=== PATIENT | female | born 1945 | race Caucasian/White ===

== ENCOUNTER → 2018-05-26 | Outpatient (CLI) | payer MEDICARE ==
[~2018-05-26] MED LIST: ARTHROTEC 75 T1 EACH PO; CLOPIDOGREL75 MG PO; CYMBALTA30 MG PO; DOC-Q-LACE100 M1 PO; DOCUSATE SODIU100 M1 PO; FERROUS SULFAT325 MG PO; GLIMEPIRIDE2 MG PO; GLYBURID-METFO1 EAC2 PO; HYDROCHLOROTHIA25 MG; HYDROCODONE-AP1 EACH PO; LEVEMIR100 UNIT/1 SQ; LOMOTIL1 EA PO; NITROGLYCERIN0.4 MG SL; NORCO 5-325 TA1 EACH PO; OXYCODONE-ACET1 EAC1 PO; PANTOPRAZOLE SO40 MG PO; PRAVASTATIN SOD40 MG; ROBAXIN-750750 MG; ULTRAM 50MG50 MG PO; Z.0.ALLEGRA ALLERG18 PO; Z.0.BENTYL20 MG PO; Z.0.CARVEDILOL12.5 M PO; Z.0.CLONAZEPAM1 MG PO; Z.0.GABAPENTIN300 MG PO; Z.0.KLOR-CON 1010 ME PO; Z.0.LASIX40 MG PO; Z.0.LEXAPRO20 MG PO; Z.0.LIPITOR10 MG PO; Z.0.LISINOPRIL10 MG PO; Z.0.LISINOPRIL20 MG PO; Z.0.METOPROLOL SUCC2 PO; Z.0.PLAVIX75 MG PO; Z.0.PREMARIN1.25 MG PO; Z.0.SIMVASTATIN10 MG PO; Z.1.ISOSORBIDE MONO6 PO; Z.1.LEVOTHYROXINE100 PO; ZOFRAN ODT4 MG PO; [UNRECOGNIZED DRUG - CODE] PO; [UNRECOGNIZED DRUG - OTHER] PO; [UNRECOGNIZED DRUG - OTHER] PO; linaclotide PO
--- NOTE | 2018-05-27 16:27 | Diagnostic Imaging Report ---
EXAMINATION: PA and lateral views of the chest. COMPARISON: None CLINICAL HISTORY: Weakness after hospital stay DISCUSSION: Lungs are well-inflated. No focal consolidation, pleural effusion, or pneumothorax. Coronary stents. Otherwise normal cardiomediastinal contour. No acute osseous abnormality. Right upper quadrant surgical clips likely related to prior cholecystectomy. IMPRESSION: No acute cardiopulmonary abnormalities. Signed by: Dr. Jai Chamorro M.D. on 05/27/2018 4:23 PM
== END ==
LOC: RAD 11:20
PROVIDERS: ATTEND Family Medicine
DX: Z02.2 Encounter for examination for admission to residential institution (principal)
CPT/HCPCS: 71046

== ENCOUNTER → 2018-10-28 | Outpatient (CLI) | payer MEDICARE ==
[~2018-10-28] MED LIST changes: +IOPAMIDOL 370 MG/ML 200 ML INFUS..BTL INJ ONE; +SODIUM CHLORIDE 0.9% 500ML 500 ML ONE; +SODIUM CHLORIDE 0.9% 50ML 50 ML ONE
--- NOTE | 2018-10-28 15:42 | Diagnostic Imaging Report ---
EXAM: CT Abdomen WITH contrast INDICATION: Right-sided abdominal and back pain, elevated LFTs. COMPARISON: Report from CT abdomen/pelvis dated 01/21/2015, although the images are not available for review at the time of this dictation. TECHNIQUE: Abdomen was scanned utilizing a multidetector helical scanner from the lung base to the iliac crest after administration of IV contrast. Coronal and sagittal reformations were obtained. Routine protocol was performed. Scan was performed when during portal venous phase. IV CONTRAST: 100 cc of Isovue 370. ORAL CONTRAST: Water RADIATION DOSE: Total DLP: 385 mGy*cm Estimated effective dose: (DLP x 0.015 x size factor) mSv Dose modulation, iterative reconstruction, and/or weight based adjustment of the mA/kV was utilized to reduce the radiation dose to as low as reasonably achievable. COMPLICATIONS: None FINDINGS: LINES and TUBES: None. LOWER THORAX: Coronary atherosclerosis. HEPATOBILIARY: Diffuse mild fatty liver. Calcified granulomas. No focal hepatic lesions. No biliary ductal dilation. GALLBLADDER: Status post cholecystectomy. SPLEEN: No splenomegaly. Splenic granulomas. PANCREAS: No focal masses or ductal dilatation. Atrophic. ADRENALS: No adrenal nodules KIDNEYS/URETERS: Kidneys enhance symmetrically. No hydronephrosis. No evidence of mass. No stones. GI TRACT: Partially visualized. No abnormal distention, wall thickening, or evidence of bowel obstruction. Small hiatal hernia. LYMPH NODES: No lymphadenopathy. VESSELS: There are scattered atherosclerotic calcifications in the aorta and branch vessels. PERITONEUM / RETROPERITONEUM: No free air or fluid. BONES/SOFT TISSUES: No acute osseous abnormality. No suspicious lytic or blastic lesions. Degenerative changes of the lumbar spine. IMPRESSION: Diffuse mild hepatic steatosis. Small hiatal hernia. Signed by: Dr. Baljit Gallegos MD on 10/28/2018 3:39 PM
== END ==
LOC: CT 13:00
PROVIDERS: ATTEND Internal Medicine
DX: R10.9 Unspecified abdominal pain (principal); K76.0 Fatty (change of) liver, not elsewhere classified
CPT/HCPCS: 74160; 96360; J7040; Q9967

== ENCOUNTER 2020-08-09 18:03 | Emergency (ER) | payer MEDICARE ==
[~2020-08-09] VITALS: Ht 320 cm; Wt 73.5 kg
[~2020-08-09 18:03] MED LIST changes: -IOPAMIDOL 370 MG/ML 200 ML INFUS..BTL INJ ONE; -SODIUM CHLORIDE 0.9% 500ML 500 ML ONE; -SODIUM CHLORIDE 0.9% 50ML 50 ML ONE
[2020-08-09 22:16] LABS: BASOPHILS % 0.9 % (0.0-1.0); EOSINOPHILS # (AUTO) 0.3 (0.0-0.4); EOSINOPHILS % 5.9 % (0.0-6.0); HEMATOCRIT 36.1 % (34.2-44.1); HEMOGLOBIN 11.8 g/dL (12.0-16.0); LYMPHOCYTES # (AUTO) 1.2 (1.0-3.2); MEAN CORPUSCULAR HEMOGLOBIN 30.2 pg (28-32); MEAN CORPUSCULAR HGB CONC 32.7 g/dL (31-35); MEAN CORPUSCULAR VOLUME 92.3 fL (81-99); MONOCYTES # (AUTO) 0.5 (0.2-0.8); MONOCYTES % 10.4 % (4.4-11.3); NEUTROPHILS # (AUTO) 2.6 (2.1-6.9); NEUTROPHILS % 57.1 % (38.7-80.0); PLATELET COUNT 167 x10e3/uL (140-360); RED BLOOD COUNT 3.91 x10e6/uL (3.6-5.1)
[2020-08-09 22:23] LABS: ALANINE AMINOTRANSFERASE 29 IU/L (0-55); ALBUMIN 3.7 g/dL (3.5-5.0); ALBUMIN/GLOBULIN RATIO 1.2 (0.8-2.0); ALKALINE PHOSPHATASE 60 IU/L (40-150); ANION GAP 14.3 mmol/L (8-16); BLOOD UREA NITROGEN 20 mg/dL (7-26); BUN/CREATININE RATIO 24 (6-25); CALCIUM 9.7 mg/dL (8.4-10.2); CARBON DIOXIDE 24 mmol/L (22-29); CHLORIDE 107 mmol/L (98-107); CREATINE KINASE 21 IU/L (29-168); CREATININE, SERUM 0.85 mg/dL (0.57-1.11); EST GLOMERULAR FILTRATION RATE > 60 ML/MIN (60-); GLUCOSE 141 mg/dL (74-118); POTASSIUM 4.3 mmol/L (3.5-5.1); SODIUM 141 mmol/L (136-145)
== END 2020-08-10 01:39 ==
LOC: ER 18:33
DX: S00.83XA Contusion of other part of head, initial encounter (principal); W19.XXXA Unspecified fall, initial encounter; Z91.81 History of falling; Y92.198 Other place in other specified residential institution as the place of occurrence of the external cause; F41.9 Anxiety disorder, unspecified; G89.29 Other chronic pain; Z95.5 Presence of coronary angioplasty implant and graft
CPT/HCPCS: 36415; 70450; 71045; 72125; 80053; 82550; 82553; 84484; 85025; 99283

== ENCOUNTER 2021-05-24 19:03 | Emergency (ER) | payer MEDICARE, OTHER ==
[~2021-05-24] VITALS: Ht 167.6 cm; Wt 81.6 kg
[2021-05-24 20:09] LABS: BASOPHILS % 0.3 % (0.0-1.0); EOSINOPHILS # (AUTO) 0.1 (0.0-0.4); EOSINOPHILS % 3.7 % (0.0-6.0); HEMOGLOBIN 11.3 g/dL (12.0-16.0); LYMPHOCYTES # (AUTO) 1.2 (1.0-3.2); LYMPHOCYTES % 39.5 % (18.0-39.1); MEAN CORPUSCULAR HEMOGLOBIN 29.3 pg (28-32); MEAN CORPUSCULAR HGB CONC 31.4 g/dL (31-35); MEAN CORPUSCULAR VOLUME 93.3 fL (81-99); MONOCYTES # (AUTO) 0.3 (0.2-0.8); MONOCYTES % 11.1 % (4.4-11.3); NEUTROPHILS # (AUTO) 1.3 (2.1-6.9); NEUTROPHILS % 44.4 % (38.7-80.0); PLATELET COUNT 159 x10e3/uL (140-360); RED BLOOD COUNT 3.86 x10e6/uL (3.6-5.1); RED CELL DISTRIBUTION WIDTH 13.7 % (11.7-14.4)
[2021-05-24 20:19] LABS: INR 0.85; PARTIAL THROMBOPLASTIN TIME 20.2 seconds (23.8-35.5); PROTHROMBIN TIME 12.3 seconds (11.9-14.5)
[2021-05-24 20:28] LABS: ALBUMIN 3.7 g/dL (3.5-5.0); ANION GAP 16.4 mmol/L (8-16); CALCIUM 9.6 mg/dL (8.4-10.2); CREATININE, SERUM 1.14 mg/dL (0.57-1.11); POTASSIUM 4.4 mmol/L (3.5-5.1)
[2021-05-25 01:25] VITALS: BP 132/65
== END 2021-05-24 23:00 ==
LOC: ER 19:11
DX: S00.212A Abrasion of left eyelid and periocular area, initial encounter (principal); M54.2 Cervicalgia; R42 Dizziness and giddiness; W01.0XXA Fall on same level from slipping, tripping and stumbling without subsequent striking against object, initial encounter; Y93.01 Activity, walking, marching and hiking; Y92.89 Other specified places as the place of occurrence of the external cause; E11.65 Type 2 diabetes mellitus with hyperglycemia; I10 Essential (primary) hypertension; E78.5 Hyperlipidemia, unspecified; E03.9 Hypothyroidism, unspecified; G40.909 Epilepsy, unspecified, not intractable, without status epilepticus; G89.29 Other chronic pain; F41.9 Anxiety disorder, unspecified; F05 Delirium due to known physiological condition; Z95.5 Presence of coronary angioplasty implant and graft
CPT/HCPCS: 36415; 70450; 71045; 72125; 80053; 82550; 82553; 83880; 84484; 85025; 85610; 85730; 93005

== ENCOUNTER 2022-06-11 09:43 | Emergency (ER) | payer MEDICARE, OTHER ==
[~2022-06-11] VITALS: Ht 167.6 cm; Wt 81.6 kg
== END 2022-06-11 14:39 | disposition home or self-care (01) ==
LOC: ER 09:49
DX: S80.01XA Contusion of right knee, initial encounter (principal); S00.93XA Contusion of unspecified part of head, initial encounter; W01.0XXA Fall on same level from slipping, tripping and stumbling without subsequent striking against object, initial encounter; Y93.01 Activity, walking, marching and hiking; Y92.019 Unspecified place in single-family (private) house as the place of occurrence of the external cause; I10 Essential (primary) hypertension; E11.9 Type 2 diabetes mellitus without complications; Z95.5 Presence of coronary angioplasty implant and graft; E78.5 Hyperlipidemia, unspecified
CPT/HCPCS: 70450; 72125; 72131; 72170; 99284